=== PATIENT | female | born 1955 | race Caucasian/White ===

== ENCOUNTER 2016-07-14 05:23 | Inpatient (IN) | payer MEDICARE, BC ==
[2016-07-07 13:51] LABS: HEMATOCRIT 39.1 % (36.0-48.0); HEMOGLOBIN 13.1 g/dL (12.0-16.0)
[2016-07-07 14:01] LABS: BUN (BLOOD UREA NITROGEN) 9 MG/DL (6-23); CALCIUM, SERUM 8.8 MG/DL (8.5-10.4); CHLORIDE, SERUM 103 MMOL/L (96-112); CO2 (CARBON DIOXIDE) 30 MMOL/L (24-34); CREATININE 0.76 MG/DL (0.55-1.02); GFR AFRICAN AMERICAN 98 ML/MIN (>=60); GFR NON AFRICAN AMERICAN 85 ML/MIN (>=60); GLUCOSE, SERUM 111 MG/DL (60-99); POTASSIUM, SERUM 3.6 MMOL/L (3.5-5.3); SODIUM, SERUM 140 MMOL/L (135-148)
--- NOTE | ~2016-07-14 | OP ---
Record Of Operation [facility] [address] [place]. [address] NAME: CORRIE DE : 55 STATUS : DIS IN PAT#: [id number] AGE: 61 ADM/REG DATE : 07/14/16 MR#: [id number] REPORT SERV DATE: 07/19/16 DICTATED BY: TALIA STONE II DATE: 07/19/16 REPORT STATUS : Draft TRANSCRIBED BY: MODElroy DATE: 07/19/16 DATE OF PROCEDURE: 07/14/2016 PREOPERATIVE DIAGNOSES: 1. Right sacroiliac joint dysfunction. 2. 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 3. Status post very successful right sacroiliac joint diagnostic and therapeutic injection. POSTOPERATIVE DIAGNOSES: 1. Right sacroiliac joint dysfunction. 2. 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 3. Status post very successful right sacroiliac joint diagnostic and therapeutic injection. PROCEDURE: 1. Open right sacroiliac joint arthrodesis. 2. Use of allograft substitute. 3. Use of stereotactic guidance. SURGEON: Talia Stone M.D. FLUIDS: 1400 mL of LR. ESTIMATED BLOOD LOSS: 25 mL. ANTIBIOTIC: Preoperatively. IMPLANTS: [employer] bolts x2. PREOPERATIVE HISTORY: This is a very friendly 61-year-old female who has a fairly complicated lumbar spinal surgical past. She has done well with each successive surgery. However, she has now been complaining of right hip and buttock pain which does not appear to be radicular. The pain was found to be exacerbated on exam by the ANNETTE test as well as having undergone a very successful diagnostic and therapeutic SI joint injection with navigation assistance to confirm the appropriate placement of the needle. This did extremely well she reported, but of course wore off after some amount of time. She and I discussed the pros and cons of the fusion. We discussed that this was still surgery of course and did require an incision with access to the iliac crest and placement of bone graft. I discussed with her that we did not have to harvest iliac crest bone graft, but could use the allograft instead and this should be able to stabilize the sacroiliac joint and give her a successful arthrodesis. Now, we discussed the rates of success versus failure and she wished to proceed. DESCRIPTION OF PROCEDURE: After informed consent was obtained, the patient was brought to Record Of Operation [facility] [address] [facility] [place]. [address] NAME: CORRIE DE : 55 STATUS : DIS IN PAT#: [id number] AGE: 61 ADM/REG DATE : 07/14/16 MR#: [id number] REPORT SERV DATE: 07/19/16 DICTATED BY: TALIA STONE II DATE: 07/19/16 REPORT STATUS : Draft TRANSCRIBED BY: MEGAN DATE: 07/19/16 the operating room at her request and general anesthesia achieved. She was placed in the prone position and the back and sacrum prepped and draped in a sterile fashion. We then placed the iliac crest pin on the left and the intraoperative CT scan completed. Stereotactic guidance was absolutely crucial for the procedure. At this point, after preplanning the incision with the use of the stereotactic guidance system, the incision was then made. This was a decent size incision approximately 7 to 8 cm in length to allow access and digital palpation of the lateral cortex of the iliac crest. At this point, using stereotactic guidance and the stereotactic awl, we then created our trajectory for the iliac bolts. Overall, we eventually used a total of two. Next, we then used the taps under power. We continued to tap up to a larger size. The bone quality was excellent. At this point, the allograft substitute was then placed into the lateral cortex. The allograft also was placed into the two bolts. This allowed excellent amount of allograft substitute to be placed into the sacroiliac joint along with the bolts. These were placed again under power and under stereotactic guidance. A repeat CT scan confirmed acceptable placement of the sacroiliac joint fusion devices. Again, we also placed a copious amount of allograft through the lateral cortex of the iliac crest into the sacroiliac joint. At this point, the area was irrigated followed by standard closure and the patient was then extubated and transferred to PACU in stable condition. The plan will be for Physical therapy evaluation here in the hospital and weight bear as tolerated. NUNU/MEGAN Talia Stone II, M.D. / [id number] CC: Andrey Amezquita II, Jr., M.D.
[~2016-07-14 05:23] MED LIST: ADVIL COLD1 OR; ADVIL PO; BENICAR HCT1 TA1 PO; FLEX PO; HYZAAR 50/12.51 TAB PO; JUICE PLUS; LORT7 PO; LORTAB10 PO; MSCONTIN PO; NEURONTIN PO; NORCO1 TAB PO; PRAVAC PO; SYN125 PO; V5 PO
== END 2016-07-15 12:51 | disposition home or self-care (01) | DRG 552 ==
LOC: SDC 05:23 → SDC/OF 09:38 → 3SO 10:49
PROVIDERS: Orthopaedic Surgery
PROC: 3E0U33Z Introduction of Anti-inflammatory into Joints, Percutaneous Approach (ICD-10-PCS; principal; 2016-07-14 07:00)
DX: M53.3 Sacrococcygeal disorders, not elsewhere classified (principal); I10 Essential (primary) hypertension; E03.9 Hypothyroidism, unspecified; F41.9 Anxiety disorder, unspecified
CPT/HCPCS: 80048; 82962; 85014; 85018; 87641; 93005; 97161-GP; A9270-GY; C1713; G8978-CJ-GP; G8979-CH-GP; J0690; J1170; J2250; J2405; J2710; J3010